=== PATIENT | female | born 1995 | race African-American/Black ===

== ENCOUNTER 2017-02-20 16:44 | Emergency (ER) | payer MEDICAID ==
[2017-02-20 17:02] VITALS: RESP 18; O2SAT 97
--- NOTE | 2017-02-20 17:07 | EDPHY ---
H & P Stated Complaint: vaginal itching, burning, discharge. HPI/ROS: HPI CHIEF COMPLAINT: Vaginal discharge, itching, discomfort HISTORY OF PRESENT ILLNESS: This patient is a 21-year-old female she does have significant past medical history [id number] diabetes and takes metformin, history of yeast infection, she presents emergency room stating that she has had some better on discharge itching and discomfort. She is concerned she may have another yeast infection however additionally she tells me she has intercourse sometimes protected sometimes unprotected and with multiple male partners. She denies any lower pelvic pain or abdominal pain. Denies fever. Past Medical History: Vaginitis with yeast, [id number] diabetes on metformin Past Surgical History: No recent surgery Social History: Denies daily use drugs alcohol tobacco products. Lives in [place] Family History: Noncontributory ROS REVIEW OF SYSTEMS: A comprehensive 10 point review of systems is otherwise negative aside from elements mentioned in the history of present illness. Exam Constitutional appears well nontoxic, triage nursing summary reviewed, vital signs reviewed, awake/alert. Eyes normal conjunctivae and sclera, EOMI, PERRLA. HENT normal inspection, atraumatic, moist mucus membranes, no epistaxis, neck supple/ no meningismus, no raccoon eyes. Respiratory clear to auscultation bilaterally, normal breath sounds, no respiratory distress, no wheezing. Cardiovascular rate normal, regular rhythm, no murmur, no edema, distal pulses normal. Gastrointestinal soft, non-tender, no rebound, no guarding, normal bowel sounds, no distension, no pulsatile mass. Genitourinary no CVA tenderness. Musculoskeletal no midline vertebral tenderness, full range of motion, no calf swelling, no tenderness of extremities, no meningismus, good pulses, neurovascularly intact. Skin pink, warm, & dry, no rash, skin atraumatic. Neurologic awake, alert and oriented x 3, AAOx3, moves all 4 extremities equally, motor intact, sensory intact, CN II-XII intact, normal cerebellar, normal vision, normal speech. Psychiatric normal mood/affect. Heme/Lymph/Immune no lymphadenopathy. Differential Diagnosis: Includes but is not limited to in a particular order, yeast infection , vaginitis, bacterial vaginal infection, gonorrhea, chlamydia Medical Decision Making: Plan for this patient pelvic exam with dirty catch urine for gonorrhea chlamydia, clean catch urine, urine , BV Re-evaluation: 1733: Pelvic exam performed. 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 No external lesions. No foul smell. Internal vaginal exam shows a normal os. Closed. No lesions. White discharge in the posterior vault. Otherwise unremarkable pelvic exam no pain tenderness no CMT no pus no adnexal fullness or pain. 175: Notified to me by nursing staff that the BV test or vaginal specimen needs to be sent to [facility] will not result till tomorrow. I will para cleat treat for yeast infection with Diflucan. Patient understands to call about her gonorrhea, chlamydia, wet prep results tomorrow. She is comfortable with this plan. The patient remained stable, hemodynamically, no acute distress , and does not have any evidence of PID. Plan is started on Diflucan. Source: Patient - Personal History LMP (Females 10-55): 22-28 Days Ago - Medical/Surgical History Other PMH: type 2 diabetes Constitutional: Initial Vital Signs Temperature (C) 36.6 C 02/20/17 16:59 Heart Rate 99 02/20/17 16:59 Respiratory Rate 18 02/20/17 16:59 Blood Pressure 131/65 H 02/20/17 16:59 O2 Sat (%) 97 02/20/17 16:59 O2 Delivery Mode Room Air Allergies/Adverse Reactions: No Known Allergies Allergy (Unverified 02/20/17 17:02) Home Medications: Medication Instructions Recorded Fluconazole [Diflucan] 200 mg PO DAILY #3 tablet 02/20/17 Metformin HCl 02/20/17 Medical Decision Making - Data Points Laboratory Results: 02/20/17 02/20/17 02/20/17 17:40 17:26 17:26 Urine Color Urine Appearance Urine pH Ur Specific [place] Urine Protein Urine Ketones Urine Blood Urine Nitrate Urine Bilirubin Urine Urobilinogen Ur Leukocyte Esterase Urine RBC Urine WBC Ur Epithelial Cells Urine Bacteria Urine Glucose Urine Test NEGATIVE Sheila species DNA Pending C.trachomatis RNA (TMA) Pending Gardnerella DNA Probe Pending N.gonorrhoeae RNA (TMA) Pending Trichomonas DNA Probe Pending 02/20/17 02/20/17 17:26 17:26 Urine Color YELLOW Urine Appearance CLEAR Urine pH 5.5 (5.0-7.5) Ur Specific [place] <= 1.005 (1.002-1.030) Urine Protein NEGATIVE (NEGATIVE) Urine Ketones NEGATIVE (NEGATIVE) Urine Blood TRACE H (NEGATIVE) Urine Nitrate NEGATIVE (NEGATIVE) Urine Bilirubin NEGATIVE (NEGATIVE) Urine Urobilinogen 0.2 EU EU (0.2-1.0) Ur Leukocyte Esterase NEGATIVE (NEGATIVE) Urine RBC 0-1 /hpf /hpf (0-3) Urine WBC 0-1 /hpf /hpf (0-3) Ur Epithelial Cells 2+ /lpf H /lpf (NONE-1+) Urine Bacteria 1+ /hpf H /hpf (NONE SEEN) Urine Glucose 3+ H (NEGATIVE) Urine Test Sheila species DNA C.trachomatis RNA (TMA) Gardnerella DNA Probe N.gonorrhoeae RNA (TMA) Cancelled Trichomonas DNA Probe Departure - Departure Disposition: Home, Routine, Self-Care Clinical Impression: Vaginitis Qualifiers: Chronicity: acute Qualified Code(s): N76.0 - Acute vaginitis Condition: Good Instructions: Vaginitis (ED) Referrals: NONE *PRIMARY CARE P,. [Primary Care Provider] - As per Instructions Prescriptions: Fluconazole [Diflucan] 200 mg PO DAILY #3 tablet
[2017-02-20 17:33] LABS: COLOR YELLOW; LEUKOCYTE ESTERASE,URINE NEGATIVE (NEGATIVE); NITRITE,URINE NEGATIVE (NEGATIVE); PH,URINE 5.5 (5.0-7.5)
[2017-02-20 17:45] LABS: WBC,URINE 0-1 /hpf (0-3)
[2017-02-20 17:46] LABS: BACTERIA 1+ /hpf (NONE SEEN); RBC,URINE 0-1 /hpf (0-3)
[2017-02-20 17:59] VITALS: BP 115/67; PULSE 74; TEMP 99
[2017-02-22 15:58] LABS: CHLAMYDIA AMPLIFICATION GENPRB NEGATIVE (NEGATIVE)
== END 2017-02-20 18:09 | disposition home or self-care (01) ==
LOC: CED 16:44
DX: N76.0 Acute vaginitis (principal); E11.9 Type 2 diabetes mellitus without complications; Z79.84 Long term (current) use of oral hypoglycemic drugs
CPT/HCPCS: 81003-PO; 81015-PO; 81025-PO